=== PATIENT | female | born 1930 | race Caucasian/White ===

== ENCOUNTER → 2016-09-18 | Outpatient (CLI) | payer OTHER ==
[~2016-09-18] MED LIST: BRIM0.1S OP; CYM/30 PO; DORZOLAMIDE-TIMOLOL; GABA-113 PO; LEVO112T4 PO; MULT-506 PO; OXYC1TAB3 PO; PANT40TA PO; TPRSR/25 PO; TRAV0.00 OPB; TYLOTC500 PO
[2016-09-18 10:06] LABS: HEMATOCRIT 41.7 % (37-47); MEAN CELL VOLUME 98.1 fL (80-100); MEAN CORPUSCULAR HEMOGLOBIN 31.1 pg (25-34); MEAN CORPUSCULAR HGB CONC 31.7 g/dl (32-36); MEAN PLATELET VOLUME 11.2 fL (7.4-10.4); PLATELET COUNT 237 K/uL (130-400); RED BLOOD COUNT 4.25 M/uL (4.2-5.4); WHITE BLOOD COUNT 4.65 K/uL (4.8-10.8)
[2016-09-18 10:19] LABS: ALT/SGPT 19 U/L (12-78); BLOOD UREA NITROGEN 20 mg/dl (7-18); BUN/CREATININE RATIO 23.1 (10-20); CALCIUM 9.2 mg/dl (8.5-10.1); CARBON DIOXIDE 29 mmol/L (21-32); CHLORIDE 106 mmol/L (98-107); CREATININE 0.88 mg/dl (0.60-1.20); GLUCOSE 105 mg/dl (70-99); POTASSIUM 4.3 mmol/L (3.5-5.1); SODIUM 140 mmol/L (136-145)
[2016-09-18 10:29] LABS: ALB/GLOB RATIO 0.9 (0.9-2); ALKALINE PHOSPHATASE 85 U/L (45-117); AST/SGOT 17 U/L (15-37)
--- NOTE | 2016-09-20 10:38 | CODING QUERY NO DIAGNOSIS ---
TREATMENT RENDERED WITHOUT A DIAGNOSIS Dr. Ignacio, To promote full compliance with coding requirements relating to patient care, physician participation is requested in all cases of deep submergence vehicle operator uncertainty. Please assist us with providing a diagnosis/symptom for the test(s) below: A diagnosis/symptom was not documented on your Order. A valid diagnosis/symptom is required to bill all insurances. Please remember that we are unable to code a diagnosis of rule out, probable, possible, questionable, or suspected. Tests that require a diagnosis: * AUTOMATED RETICULOCYTE COUNT DIAGNOSIS: DATE OF SERVICE: 09/18/16 Provider Signature: Date: Thank you [facility] Information Management Once completed, please kindly fax back to [phone] For questions please call [phone]
== END | disposition home or self-care (01) ==
LOC: C.LABFOXMH 09:12
PROVIDERS: ATTEND Internal Medicine
DX: E03.9 Hypothyroidism, unspecified (principal); I10 Essential (primary) hypertension; D64.9 Anemia, unspecified

== ENCOUNTER → 2016-10-16 | Outpatient (CLI) | payer OTHER ==
[~2016-10-16] MED LIST changes: -OXYC1TAB3 PO
--- NOTE | 2016-10-16 11:41 | DIAGNOSTIC IMAGING REPORT ---
RIGHT LOWER LEG ULTRASOUND CLINICAL HISTORY: Right leg mass COMPARISON STUDY: No previous studies for comparison. FINDINGS: No discrete ultrasonographic masses visualized. There is right lower leg edema. If a clinically suspicious mass is palpated, additional imaging such as an MRI should be considered in follow-up. IMPRESSION: Right lower leg edema. A discrete mass was not visualized ultrasonographically. If a clinically suspicious mass is repalpated, then additional imaging or biopsy should be obtained. Electronically signed by: Hilario Chang M.D. 10/16/2016 11:39 AM Dictated Date/Time: 10/16/2016 11:38 AM
== END | disposition home or self-care (01) ==
LOC: C.ULTR 10:41
PROVIDERS: ATTEND Nurse Practitioner Family
DX: R60.0 Localized edema (principal); R22.41 Localized swelling, mass and lump, right lower limb

== ENCOUNTER → 2017-01-11 | Day surgery (SDC) | payer OTHER ==
[2016-12-19 13:42] VITALS: Ht 154.9 cm; Wt 86.4 kg
[~2017-01-11] VITALS: Ht 154.9 cm; Wt 86.4 kg
[~2017-01-11] MED LIST changes: +BRIMONIDINE TARTRATE 0.2% 5ML OP SCH; +BRIMONIDINE TARTRATE 0.2% 5ML OPR SCH; +PILOCARPINE HCL 2% OP SOLN 15 ML BTL ONE; +PILOCARPINE HCL 2% OP SOLN 15 ML BTL OPR SCH; +PROPARACAINE 0.5% OP SOLN PER DROP CHARGE ONE; +PROPARACAINE 0.5% OP SOLN PER DROP CHARGE OPR SCH; +PrednisoLONE ACET 1% OP SUSP 5 ML BTL OP SCH
--- NOTE | 2017-01-11 11:39 | History and Physical: Surg Cnt ---
History & Physical Date Jan 11, 2017. Chief Complaint Glaucoma, right eye History of Present Illness The patient is a 86 year old female with complaints of Past Medical/Surgical History Medical Problems: (1) Accelerated essential hypertension (2) Avulsion fracture of thumb (3) CATARACT NOS (4) Diverticulosis (5) DIVERTICULOSIS COLON (W/O MENT OF HEMORRHAGE) (6) GERD (gastroesophageal reflux disease) (7) HYPERLIPIDEMIA NEC/NOS (8) HYPERTENSION NOS (9) Hypothyroid (10) Migraine (11) MIGRAINE UNSPECIFIED W/O INTRACT MGRN W/O STATUS MIGRAINOSUS (12) Obstructive sleep apnea (13) OSTEOPOROSIS NOS (14) RHEUMATOID ARTHRITIS (15) Subluxation of interphalangeal joint of left thumb (16) Uterine prolapse Surgical Problems: (1) H/O: hysterectomy Additional History Hepatic Disease: No Endocrine Disorder: Yes Kidney Disease: No Hypertension: Yes Heart Disease: No Bleeding Tendencies: No Infectious Diseases: No Allergies Coded Allergies: Azithromycin (Verified Allergy, Unknown, HIVES, 12/19/16) Home Medications Scheduled Brimonidine Tartrate (Alphagan P Oph), 1 DROP OP Q12H Duloxetine HCl (Cymbalta), 30 MG PO QAM Gabapentin (Neurontin), 300 MG PO HS Levothyroxine Sodium (Levothyroxine Sodium), 112 MCG PO QAM Metoprolol Succinate (Metoprolol Succinate ER), 12.5 MG PO HS Multivitamin (Multivitamin), 1 TAB PO QAM Pantoprazole Sodium (Protonix), 40 MG PO QAM Travoprost (Travatan Z), 1 DROP OPB HS [Dorzolamide-Timolol], BID Scheduled PRN Acetaminophen (Tylenol), 500 MG PO DAILY PRN for Pain Physical Examination Skin: warm/dry, no rash Eyes: normal inspection, EOMI, sclerae normal ENT: normal ENT inspection, pharynx normal Head: normocephalic, atraumatic Neck: supple, no adenopathy, trachea midline Respiratory/Chest: lungs clear, normal breath sounds, no respiratory distress Cardiovascular: regular rate, rhythm, no edema, no murmur Abdomen / GI: normal bowel sounds, non tender Back: normal inspection Extremities: normal inspection, normal range of motion Neurologic/Psych: no motor/sensory deficits, alert, normal reflexes, oriented x 3 Diagnosis glaucoma right eye ASA Classification: ASA Class II Plan of Treatment Stable for SLT right eye
[2017-01-11 12:37] VITALS: BP 135/85; PULSE 67; O2SAT 96
--- NOTE | 2017-01-11 12:39 | Discharge Instructions-SurgCtr ---
Discharge Instructions Date of Service Jan 11, 2017. Visit Reason for Visit: Glaucoma Right Eye Discharge Discharge Diagnosis / Problem: glaucoma Discharge Goals Goal(s): Improve disease control Activity Recommendations Activity Limitations: resume your previous activity Anesthesia . Post Anesthesia Instructions: If you have had General Anesthesia or IV Sedation: * Do not drive today. * Resume driving when surgeon permits. * Do not make important decisions or sign legal documents today. * Call surgeon for: 1. Temperature elevations greater than 101 degrees F. 2. Uncontrollable pain. 3. Excessive bleeding. 4. Persistent nausea and vomiting. 5. Medication intolerance (nausea, vomiting or rash). * For nausea and vomiting use only clear liquids such as: tea, soda, bouillon until nausea subsides, then gradually increase diet as tolerated. * If you have any concerns or questions, call your surgeon's office. If physician is unavailable and it is an emergency, call 911 or go to the nearest emergency room. . Instructions / Follow-Up Instructions / Follow-Up ACTIVITY RECOMMENDATIONS: * No limitations RETURN TO SCHOOL/WORK: * No limitations DIET: * No limitations MEDICATIONS: Resume previous medications unless instructed otherwise by your surgeon. * Please use Prednisolone acetate drops prescription given to you at your office appointment as follows: 1 drop in effected eye 4 times a day for 5 days. * Continue all glaucoma drops as usual with no interruption to either eye. SPECIAL CARE INSTRUCTIONS: Call your doctor at with any concerns or problems. FOLLOW UP VISIT: Follow-up with Dr Martinez in 1 hour. Diet Recommendations Home Diet: resume previous diet Pending Studies Studies pending at discharge: no Medical Emergencies . Who to Call and When: Medical Emergencies: If at any time you feel your situation is an emergency, please call 911 immediately. . Non-Emergent Contact Non-Emergency issues call your: Anthropology Professor . . "Provider Documentation" section prepared by Erick Martinez. .
--- NOTE | 2017-01-11 12:40 | [facility] Operative Report ---
Operative Report Date of Service Jan 11, 2017. Operative Report Diagnosis: Glaucoma, right eye Procedure: SLT inferior 180 degrees, right eye 1.2mj with 53 spots Complications: none I attest to the content of the Intraoperative Record and any orders documented therein. Any exceptions are noted below.
== END | disposition home or self-care (01) ==
LOC: X.SURG 10:53
PROVIDERS: ATTEND Ophthalmology
DX: H40.9 Unspecified glaucoma (principal); I10 Essential (primary) hypertension; K21.9 Gastro-esophageal reflux disease without esophagitis; Z79.899 Other long term (current) drug therapy

== ENCOUNTER → 2017-06-14 | Outpatient (CLI) | payer OTHER ==
[~2017-06-14] MED LIST changes: -BRIMONIDINE TARTRATE 0.2% 5ML OP SCH; -BRIMONIDINE TARTRATE 0.2% 5ML OPR SCH; -PILOCARPINE HCL 2% OP SOLN 15 ML BTL ONE; -PILOCARPINE HCL 2% OP SOLN 15 ML BTL OPR SCH; -PROPARACAINE 0.5% OP SOLN PER DROP CHARGE ONE; -PROPARACAINE 0.5% OP SOLN PER DROP CHARGE OPR SCH; -PrednisoLONE ACET 1% OP SUSP 5 ML BTL OP SCH
[2017-06-14 09:24] LABS: BLOOD UREA NITROGEN 23 mg/dl (7-18); CALCIUM 9.4 mg/dl (8.5-10.1); CARBON DIOXIDE 29 mmol/L (21-32); CREATININE 0.95 mg/dl (0.60-1.20); GLUCOSE 102 mg/dl (70-99); POTASSIUM 4.1 mmol/L (3.5-5.1); SODIUM 140 mmol/L (136-145)
== END ==
LOC: C.LABFOXMH 08:55
PROVIDERS: ATTEND Internal Medicine
DX: E03.9 Hypothyroidism, unspecified (principal); I10 Essential (primary) hypertension

== ENCOUNTER 2017-07-02 18:20 | Emergency (ER) | payer OTHER ==
[~2017-07-02] VITALS: Ht 160 cm; Wt 84.8 kg
[2017-07-02 18:20] VITALS: Ht 160 cm; Wt 84.8 kg
--- NOTE | 2017-07-02 19:21 | EMERGENCY ROOM VISIT NOTE ---
History Report prepared by Ileana: Kavin Vickers Under the Supervision of: Dr. Darin Walker M.D. First contact with patient: 18:32 Chief Complaint: FALL Stated Complaint: FALL, L SHOULDER SORENESS History of Present Illness The patient is an 87 year old female who presents to the Emergency Room with complaints of an episode of hypertension occurring today. The patient states that she fell today because someone bumped into her walker. She notes that when she fell, she fell on the left side and is now experiencing mild left shoulder soreness. She reports that she remembers the fall and did not hit her head or lose consciousness. The patient states that she is a resident at [facility], and notes that when staff was checking her, she had an elevated blood pressure, prompting her visit to the emergency department tonight. She reports that she also had a headache today before she fell and took two Tylenol with relief of her symptoms. She denies any abdominal pain, chest pain, SOB, and urinary symptoms. The patient states that she occasionally gets headaches and has a previous history of a shoulder replacement and has a heart murmur. She also notes that she takes medication for her high blood pressure. She reports that she has not missed any medication doses. Source of History: patient Onset: today Position: other (global) Quality: other (hypertension) Timing: other (an episode) Associated Symptoms: + headache, No LOC, No chest pain, No SOB, No abdominal pain, No urinary symptoms Note: The patient also complains of mild left shoulder soreness. Review of Systems See HPI for pertinent positives & negatives. A total of 10 systems reviewed and were otherwise negative. Past Medical & Surgical Medical Problems: (1) Accelerated essential hypertension (2) Avulsion fracture of thumb (3) CATARACT NOS (4) Diverticulosis (5) DIVERTICULOSIS COLON (W/O MENT OF HEMORRHAGE) (6) GERD (gastroesophageal reflux disease) (7) Headache (8) Heart murmur (9) HYPERLIPIDEMIA NEC/NOS (10) Hypertension (11) HYPERTENSION NOS (12) Hypothyroid (13) Migraine (14) MIGRAINE UNSPECIFIED W/O INTRACT MGRN W/O STATUS MIGRAINOSUS (15) Obstructive sleep apnea (16) OSTEOPOROSIS NOS (17) RHEUMATOID ARTHRITIS (18) Subluxation of interphalangeal joint of left thumb (19) Uterine prolapse Surgical Problems: (1) H/O shoulder replacement (2) H/O: hysterectomy Family History FH: HTN (hypertension) FH: diabetes mellitus FHx: heart disease Social History Smoking Status: Never Smoker Marital Status: Housing Status: senior living Occupation Status: retired Current/Historical Medications Scheduled Brimonidine Tartrate (Alphagan P Oph), 1 DROP OP Q12H Carbamide Peroxide (Otic) (Debrox), 3 DROPS OT HS Cephalexin Monohydrate (Keflex), 500 MG PO TID Duloxetine HCl (Cymbalta), 30 MG PO QAM Gabapentin (Neurontin), 300 MG PO HS Levothyroxine Sodium (Levothyroxine Sodium), 112 MCG PO QAM Metoprolol Succinate (Metoprolol Succinate ER), 12.5 MG PO HS Pantoprazole Sodium (Protonix), 40 MG PO QAM [Dorzolamide-Timolol], BID Scheduled PRN Acetaminophen (Tylenol), 500 MG PO DAILY PRN for Pain Docusate Sodium (Colace), 100 MG PO BID PRN for Constipation Allergies Coded Allergies: Azithromycin (Verified Allergy, Unknown, HIVES, 01/11/17) Esomeprazole (Verified Adverse Reaction, Intermediate, HEADACHE, 07/02/17) Uncoded Allergies: BACTRIM DS (Adverse Reaction, Intermediate, GI UPSET, 07/02/17) Physical Exam Vital Signs Date Time Temp Pulse Resp B/P (MAP) Pulse Ox O2 Delivery O2 Flow Rate FiO2 07/03/17 00:35 36.6 97 18 150/96 96 07/02/17 22:28 97 18 150/96 96 Room Air 07/02/17 20:49 92 07/02/17 20:15 88 20 150/96 97 Room Air 07/02/17 18:20 36.6 81 15 139/100 94 Room Air Physical Exam GENERAL: Patient is in no acute distress. HEENT: No acute trauma, normocephalic atraumatic, mucous membranes moist, no nasal congestion, no scleral icterus, no scalp hematomas. NECK: No stridor, no adenopathy, no meningismus, trachea is midline, no posterior c spine tenderness. LUNGS: Clear to auscultation bilaterally, no wheeze, no rhonchi, breath sounds equal. HEART: 3/6 systolic murmur, regular rate and rhythm. ABDOMEN: Soft, nontender, bowel sounds positive, no hernias, no peritonitis. EXTREMITIES: No cyanosis or edema, full range of motion of all the joints without pain or difficulty, no signs for acute trauma. NEUROLOGIC: Oriented x 3, no acute motor or sensory deficits, no focal weakness. SKIN: No rash, no jaundice, no diaphoresis. Medical Decision & Procedures ER Provider Diagnostic Interpretation: Radiology results as stated below per my review and radiologist interpretation: CT OF THE HEAD WITHOUT CONTRAST FINDINGS: Exam is mildly compromised by motion artifact. No acute intracranial hemorrhage, midline shift or mass effect is present. Ventricular system is stable. Basilar cisterns are patent. White matter hypodensities suggest moderate small vessel disease. There are no findings to suggest acute dural sinus thrombosis or acute territorial infarct. There are no significant calvarial abnormalities. IMPRESSION: No acute intracranial findings. Electronically signed by: Sean Das M.D. 07/02/2017 10:02 PM Laboratory Results 07/02/17 19:10 07/02/17 19:10 Test 07/02/17 19:10 07/02/17 20:35 Red Blood Count 4.50 M/uL (4.2-5.4) Mean Corpuscular Volume 97.3 fL (80-100) Mean Corpuscular Hemoglobin 31.6 pg (25-34) Mean Corpuscular Hemoglobin Concent 32.4 g/dl (32-36) RDW Standard Deviation 50.0 fL (36.4-46.3) RDW Coefficient of Variation 13.9 % (11.5-14.5) Mean Platelet Volume 11.2 fL (7.4-10.4) Anion Gap 7.0 mmol/L (3-11) Est Creatinine Clear Calc Drug Dose 40.5 ml/min Estimated GFR () 58.0 Estimated GFR (Non- 50.0 BUN/Creatinine Ratio 20.9 (10-20) Calcium Level 9.6 mg/dl (8.5-10.1) Troponin I < 0.015 ng/ml (0-0.045) Urine Color YELLOW Urine Appearance CLEAR (CLEAR) Urine pH 5.5 (4.5-7.5) Urine Specific Melbeta 1.012 (1.000-1.030) Urine Protein NEG (NEG) Urine Glucose (UA) NEG (NEG) Urine Ketones NEG (NEG) Urine Occult Blood TRACE (NEG) Urine Nitrite NEG (NEG) Urine Bilirubin NEG (NEG) Urine Urobilinogen NEG (NEG) Urine Leukocyte Esterase LARGE (NEG) Urine WBC (Auto) >30 /hpf (0-5) Urine RBC (Auto) 0-4 /hpf (0-4) Urine Hyaline Casts (Auto) 1-5 /lpf (0-5) Urine Epithelial Cells (Auto) 10-20 /lpf (0-5) Urine Bacteria (Auto) NEG (NEG) Laboratory results reviewed by me. Medications Administered Medications (Trade) Dose Ordered Sig/Marielle Route Start Time Stop Time Status Last Admin Dose Admin Cephalexin Monohydrate (Keflex Cap) 500 mg NOW STAT PO 07/02/17 21:02 07/02/17 21:03 DC 07/02/17 21:08 500 MG ED Course 1831: The patient was evaluated in room A3. A complete history and physical exam was performed. 2101: Keflex Cap 500mg PO 2102: I spoke to the nurse. She states that the patient's son called and noted that the patient was not her usual self this morning. 2211: Reevaluated the patient. Discussed results and discharge instructions: she verbalized understanding and agreement. The patient is ready for discharge. Medical Decision Differential diagnoses include: head/neck injury, extremity fracture/injury, UTI , renal failure, electrolyte abnormalities, anemia, and cardiac ischemia. There is no leukocytosis or concerning anemia. No significant electrolyte abnormality, no kidney failure. Brain CT shows no acute bleed or mass-effect. Urinalysis suggests infection, urine culture is pending. On exam, there were no focal neurologic deficits. The patient was awake and interactive. She has not experienced chest pain or dyspnea. There was no loss of consciousness. No evidence for worrisome injury to her extremities, neck or chest. The patient's blood pressure did decrease on its own, she was asymptomatic with the mild hypertension. I did not think her blood pressure required emergent treatment. The patient was reassured by her workup. She is being discharged back to her care facility. The patient was given a dose of oral Keflex, she will be continued on this medication for a presumed UTI. Medication Reconcilliation Current Medication List: was personally reviewed by me Blood Pressure Screening Patient's blood pressure: Elevated blood pressure Blood pressure disposition: Referred to PCP Impression Primary Impression: Hypertension Additional Impressions: Fall UTI (urinary tract infection) Scribe Attestation The scribe's documentation has been prepared under my direction and personally reviewed by me in its entirety. I confirm that the note above accurately reflects all work, treatment, procedures, and medical decision making performed by me. Departure Information Dispostion Home / Self-Care Prescriptions Cephalexin Monohydrate (Keflex) 500 Mg Cap 500 MG PO TID for 7 Days, #21 CAP Prov: Darin Walker M.D. 07/02/17 Referrals Ama Moise (PCP) Forms HOME CARE DOCUMENTATION FORM, IMPORTANT VISIT INFORMATION Patient Instructions My [facility] Additional Instructions keflex 3x per day for 1 week return if worsening lab testing was all ok Brain CT scan was ok follow with aline retana this week for a recheck Problem Qualifiers
[2017-07-02 19:38] LABS: HEMATOCRIT 43.8 % (37-47); HEMOGLOBIN 14.2 g/dL (12.0-16.0); MEAN CELL VOLUME 97.3 fL (80-100); MEAN CORPUSCULAR HEMOGLOBIN 31.6 pg (25-34); MEAN CORPUSCULAR HGB CONC 32.4 g/dl (32-36); MEAN PLATELET VOLUME 11.2 fL (7.4-10.4); PLATELET COUNT 187 K/uL (130-400); RED CELL DISTRIBUTION WIDTH CV 13.9 % (11.5-14.5); WHITE BLOOD COUNT 6.05 K/uL (4.8-10.8)
[2017-07-02 21:01] LABS: BLOOD UREA NITROGEN 21 mg/dl (7-18); CALCIUM 9.6 mg/dl (8.5-10.1); CARBON DIOXIDE 27 mmol/L (21-32); CREATININE 1.01 mg/dl (0.60-1.20); GLUCOSE 86 mg/dl (70-99); SODIUM 137 mmol/L (136-145)
[2017-07-02] MEDS ORDERED: CEPHALEXIN MONOHYDRATE 250 MG CAP PO STA (21:02)
[2017-07-02] MEDS ORDERED: DOCU-94 PO (21:11)
[2017-07-02] MEDS ORDERED: CARB1SOL8 OT (21:27)
--- NOTE | 2017-07-02 22:03 | DIAGNOSTIC IMAGING REPORT ---
CT OF THE HEAD WITHOUT CONTRAST CLINICAL HISTORY: Confusion. COMPARISON STUDY: Head CT November 02, 2014. CT DOSE: 1236.21 mGy.cm TECHNIQUE: Helical axial images of the head were obtained without IV contrast. Automated exposure control was utilized for the study. A dose lowering technique was utilized adhering to the principles of ALARA. FINDINGS: Exam is mildly compromised by motion artifact. No acute intracranial hemorrhage, midline shift or mass effect is present. Ventricular system is stable. Basilar cisterns are patent. White matter hypodensities suggest moderate small vessel disease. There are no findings to suggest acute dural sinus thrombosis or acute territorial infarct. There are no significant calvarial abnormalities. IMPRESSION: No acute intracranial findings. Electronically signed by: Sean Das M.D. 07/02/2017 10:02 PM Dictated Date/Time: 07/02/2017 10:00 PM
[2017-07-02] MEDS ORDERED: CEPH500C PO (22:16)
[2017-07-03 00:35] VITALS: BP 150/96; PULSE 97; TEMP 36.6; O2SAT 96
== END 2017-07-03 00:35 | disposition home or self-care (01) ==
LOC: EDBD 18:20 → C.EDA 18:21
DX: I10 Essential (primary) hypertension (principal); R29.6 Repeated falls; N39.0 Urinary tract infection, site not specified; R01.1 Cardiac murmur, unspecified; H26.9 Unspecified cataract; K57.30 Diverticulosis of large intestine without perforation or abscess without bleeding; K21.9 Gastro-esophageal reflux disease without esophagitis; E78.5 Hyperlipidemia, unspecified; E03.9 Hypothyroidism, unspecified; M81.0 Age-related osteoporosis without current pathological fracture; G47.33 Obstructive sleep apnea (adult) (pediatric); M06.9 Rheumatoid arthritis, unspecified; Z96.619 Presence of unspecified artificial shoulder joint; Z90.710 Acquired absence of both cervix and uterus; Z88.8 Allergy status to other drugs, medicaments and biological substances; Z88.1 Allergy status to other antibiotic agents; Z88.2 Allergy status to sulfonamides; Z82.49 Family history of ischemic heart disease and other diseases of the circulatory system; Z83.3 Family history of diabetes mellitus